=== PATIENT | male | born 1955 | race Hispanic/Latino ===

== ENCOUNTER 2020-06-06 14:57 | Emergency (ER) | payer OTHER ==
[2020-06-06 15:29] VITALS: BP 180/96
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
--- NOTE | 2020-06-06 16:00 | Cat Scan Report ---
CT BRAIN: 06/06/2020 INDICATION / CLINICAL INFORMATION: Trauma. Dizziness.. COMPARISON: None available. FINDINGS: BRAIN/INTRACRANIAL STRUCTURES: Unenhanced CT images of the brain demonstrate no evidence of acute int racranial abnormality. Ventricles and sulci are slightly prominent in size, consistent with age-related atrophic change. There is no evidence of acute ischemic injury, hemorrhage, or mass. There are no abnormal extra-axial fluid collections. EXTRACRANIAL STRUCTURES: Unremarkable. IMPRESSION: No acute abnormality. All CT scans at this location are performed using dose reduction to ALARA by means of automated expos ure control. Signer Name: Randell Levi MD Signed: 06/06/2020 3:56 PM Workstation Name: [id number]
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
== END 2020-06-06 18:15 | disposition home or self-care (01) ==
LOC: ED 14:57
DX: S13.4XXA Sprain of ligaments of cervical spine, initial encounter (principal); S00.03XA Contusion of scalp, initial encounter; I10 Essential (primary) hypertension; Z98.890 Other specified postprocedural states; Z79.899 Other long term (current) drug therapy; V49.49XA Driver injured in collision with other motor vehicles in traffic accident, initial encounter; Y92.410 Unspecified street and highway as the place of occurrence of the external cause; Y93.89 Activity, other specified; Y99.8 Other external cause status
CPT/HCPCS: 70450; 72125

== ENCOUNTER 2021-10-21 17:25 | Emergency (ER) | payer MEDICARE ==
[2021-10-21] MEDS ORDERED: cloNIDine 0.2 MG TAB PO ONE (18:54)
[2021-10-21 19:06] VITALS: BP 180/101
--- NOTE | 2021-10-21 19:08 | Event Note ---
ED Screening Note ED Screening Note: Patient is a 66-year-old male presents emergency room complaints of right-sided flank pain and right lower back pain that began 3 days ago He states it feels like intermittent sharp stabbing pain He states it will last for a few hours and resolve He states 4 years ago his doctor advised him that he had a kidney stone present in the kidney States he is also had back surgery in the past He denies any fever, vomiting, diarrhea, urinary symptoms Patient states he has an allergy to lisinopril he has past medical history of hypertension and states that he did not take his blood pressure medication today This initial assessment/diagnostic orders/clinical plan/treatment(s) is/are subject to change based on patients health status, clinical progression and re- assessment by fellow clinical providers in the ED. Further treatment and workup at subsequent clinical providers discretion. Patient/guardian urged not to elope from the ED as their condition may be serious if not clinically assessed and managed. Initial orders include: Labs, urine, med
--- NOTE | 2021-10-21 19:43 | Cat Scan Report ---
CT ABDOMEN AND PELVIS WITHOUT CONTRAST INDICATION: right flank, right lower back pain CONTRAST: Without IV COMPARISON: None available. All CT scans at this location are performed using CT dose reduction for ALARA by means of automated e xposure control. FINDINGS: Lung bases are clear. No pneumoperitoneum is seen. Small hepatic cysts are noted. Liver jagdeep ws mild fatty infiltration and is mildly enlarged. Hepatic length measures 18.4 cm. Spleen appears wi thin normal limits. I see no abnormalities of the adrenals, pancreas, gallbladder, or bile ducts. No lymphadenopathy is seen. No evidence of bowel obstruction is noted. No inflammatory changes are seen. No free fluid is noted. No pelvic masses are seen. Minimal umbilical fatty hernia is noted without a cute change. Mild bilateral nephrolithiasis is seen. No obstructive changes are seen on the left. On the right the re is mild prominence of the collecting system and most of the right ureter. Edema is seen in surroun ding the right kidney and upper ureter. Right kidney also shows 2 water density probable cyst. The ri ght ureter has a 5 mm calculus in the distal portion just above the ureterovesical junction. Left ure ter shows no calculi. Urinary bladder is not well distended but shows no abnormalities. Prostate is m ildly enlarged. Seminal vesicles appear within normal limits. IMPRESSION: 1. Mildly obstructing distal right ureteral calculus 2. Mild bilateral nephrolithiasis Signer Name: Alex Rios MD Signed: 10/21/2021 7:39 PM Workstation Name: [id number]
[2021-10-21 19:44] LABS: Bacteria,Urine 1+ /HPF (Negative); Bilirubin,Urine NEG (Negative); Blood,Urine MOD (Negative); Color,Urine Yellow (Yellow); Mucus,Urine FEW /HPF; Protein,Urine <15 mg/dL mg/dL (Negative); Urobilinogen,Urine < 2.0 mg/dL (<2.0)
--- NOTE | 2021-10-21 19:51 | Emergency Department Report ---
ED General Adult HPI - General Chief complaint: Abdominal Pain Stated complaint: KIDNEY STONES PUI?: No Time Seen by Provider: 10/21/21 19:22 Source: patient, RN notes reviewed Mode of arrival: Ambulatory Limitations: No Limitations - History of Present Illness Initial comments: The patient was evaluated in the emergency department for symptoms described in the history of present illness. He/she was evaluated in the context of the global COVID-19 pandemic, which necessitated consideration that the patient might be at risk for infection with the virus that causes COVID-19. Institutional protocols and algorithms that pertain to the evaluation of patients at risk for COVID-19 are in a state of rapid change based on inform ation released by regulatory bodies including the CDC and federal and state organizations. These policies and algorithms were followed during the patient's care in the emergency department. Please note that these policies, procedures and recommendations changed on a rapid basis. The patient is a pleasant 66-year-old gentleman with a history of hypertension and renal colic, who presents to the ER with a complaint of "I think I have a kidney stone." The patient reports an odd sensation of discomfort from his right paralumbar region that radiates around to his right lower quadrant. However, he reports that he is not in physical pain. He denies testicular pain, and dysuria. He denies nausea, vomiting and diarrhea. He reports that he feels like he is at his baseline. Of note, he has a history of hypertension, and did not take his blood pressure medication today. He reports that he feels "fine", and states that he has no physical pain at this time. He declines analgesia at this time. He denies extremity weakness and numbness, as well as bladder/bowel retention and incontinence as well as saddle anesthesia -: Gradual Location: back Radiation: abdomen Severity scale (0 -10): 9 Improves with: none Worsens with: none Associated Symptoms: denies other symptoms - Related Data Previous Rx's Medication Instructions Recorded Last Taken Type Acetaminophen [Non-Aspirin Extra 500 mg PO Q6HR PRN #30 tablet 10/21/21 Unknown Rx Strength] Ibuprofen [Motrin] 600 mg PO Q8H PRN #30 tablet 10/21/21 Unknown Rx Ondansetron [Zofran Odt] 4 mg PO Q8HR PRN #20 tab.rapdis 10/21/21 Unknown Rx Tamsulosin [Flomax] 0.4 mg PO QHS #30 cap 10/21/21 Unknown Rx Allergies Allergy/AdvReac Type Severity Reaction Status Date / Time No Known Allergies Allergy Unverified 06/06/20 15:26 ED Review of Systems ROS: Stated complaint: KIDNEY STONES Other details as noted in HPI Constitutional: denies: fever Eyes: denies: eye discharge ENT: denies: epistaxis Respiratory: denies: cough Cardiovascular: denies: chest pain Gastrointestinal: as per HPI. denies: nausea, vomiting, diarrhea Musculoskeletal: as per HPI Neurological: denies: weakness ED Past Medical Hx - Past Medical History Previous Medical History?: Yes Hx Hypertension: Yes Hx Diabetes: Yes Hx Kidney Stones: Yes - Surgical History Past Surgical History?: Yes Additional Surgical History: back surgery - Medications Home Medications: Home Medications Medication Instructions Recorded Confirmed Last Taken Type Acetaminophen [Non-Aspirin Extra 500 mg PO Q6HR PRN #30 tablet 10/21/21 Unknown Rx Strength] Ibuprofen [Motrin] 600 mg PO Q8H PRN #30 tablet 10/21/21 Unknown Rx Ondansetron [Zofran Odt] 4 mg PO Q8HR PRN #20 tab.rapdis 10/21/21 Unknown Rx Tamsulosin [Flomax] 0.4 mg PO QHS #30 cap 10/21/21 Unknown Rx ED Physical Exam - General Limitations: No Limitations General appearance: alert, in no apparent distress - Head Head exam: Present: atraumatic, normocephalic - Eye Eye exam: Present: normal appearance, EOMI. Absent: nystagmus - ENT ENT exam: Present: normal exam, normal orophraynx, mucous membranes moist, normal external ear exam - Neck Neck exam: Present: normal inspection, full ROM. Absent: tenderness, meningismus - Respiratory Respiratory exam: Present: normal lung sounds bilaterally. Absent: respiratory distress, wheezes, rales, rhonchi, stridor, decreased breath sounds - Cardiovascular Cardiovascular Exam: Present: regular rate, normal rhythm, normal heart sounds. Absent: bradycardia, tachycardia, irregular rhythm, systolic murmur, diastolic murmur, rubs, gallop - GI/Abdominal GI/Abdominal exam: Present: soft. Absent: distended, tenderness, guarding, jaron ound, rigid, pulsatile mass - Rectal Rectal exam: Present: deferred - Extremities Exam Extremities exam: Present: normal inspection, full ROM, other (2+ pulses noted in the bilateral upper and lower extremities. There is no palpable cord. negative Homans sign. Muscular compartments are soft. The pelvis is stable.). Absent: pedal edema, calf tenderness - Back Exam Back exam: Present: normal inspection. Absent: tenderness, CVA tenderness (R), CVA tenderness (L), paraspinal tenderness, vertebral tenderness - Neurological Exam Neurological exam: Present: alert, oriented X3, normal gait, other (No facial droop. Tongue midline. Extraocular movements intact bilaterally. Facial sensation intact to light touch in V1, V2, V3 distribution bilaterally. 5 and a 5 strength in 4 extremities. Sensation intact to light touch in 4 extremi ties.). Absent: motor sensory deficit - Psychiatric Psychiatric exam: Present: normal affect, normal mood - Skin Skin exam: Present: warm, dry, intact, normal color. Absent: rash ED Course Vital Signs 10/21/21 10/21/21 10/21/21 17:52 19:05 21:03 Temperature 98.3 F Pulse Rate 84 81 Respiratory 20 17 Rate Blood Pressure 180/101 Blood Pressure 214/110 [Right] O2 Sat by Pulse 98 100 Oximetry ED Medical Decision Making - Lab Data Vital Signs 10/21/21 10/21/21 17:52 19:05 Temperature 98.3 F Pulse Rate 84 Respiratory 20 Rate Blood Pressure 180/101 Blood Pressure 214/110 [Right] O2 Sat by Pulse 98 Oximetry Lab Results 10/21/21 Range/Units Unknown Urine Color Yellow (Yellow) Urine Turbidity Clear (Clear) Urine pH 6.0 (5.0-7.0) Ur Specific [place] 1.016 (1.003-1.030) Urine Protein <15 mg/dl (Negative) mg/dL Urine Glucose (UA) 50 (Negative) mg/dL Urine Ketones Neg (Negative) mg/dL Urine Blood Mod (Negative) Urine Nitrite Neg (Negative) Urine Bilirubin Neg (Negative) Urine Urobilinogen < 2.0 (<2.0) mg/dL Ur Leukocyte Esterase Neg (Negative) Urine WBC (Auto) 2.0 (0.0-6.0) /HPF Urine RBC (Auto) 9.0 (0.0-6.0) /HPF Urine Bacteria (Auto) 1+ (Negative) /HPF Urine Mucus Few /HPF - Radiology Data Radiology results: report reviewed, image reviewed CT ABDOMEN AND PELVIS WITHOUT CONTRAST INDICATION: right flank, right lower back pain CONTRAST: Without IV COMPARISON: None available. All CT scans at this location are performed using CT dose reduction for ALARA by means of automated exposure control. FINDINGS: Lung bases are clear. No pneumoperitoneum is seen. Small hepatic cysts are noted. Liver shows mild fatty infiltration and is mildly enlarged. Hepatic length measures 18.4 cm. Spleen appears within normal limits. I see no abnormalities of the adrenals, pancreas, gallbladder, or bile ducts. No lymphadenopathy is seen. No evidence of bowel obstruction is noted. No inflammatory changes are seen. No free fluid is noted. No pelvic masses are seen. Minimal umbilical fatty hernia is noted without acute change. Mild bilateral nephrolithiasis is seen. No obstructive changes are seen on the left. On the right there is mild prominence of the collecting system and most of the right ureter. Edema is seen in surrounding the right kidney and upper ureter. Right kidney also shows 2 water density probable cyst. The right ureter has a 5 mm calculus in the distal portion just above the ureterovesical junction. Left ureter shows no calculi. Urinary bladder is not well distended but shows no abnormalities. Prostate is mildly enlarged. Seminal vesicles appear within normal limits. IMPRESSION: 1. Mildly obstructing distal right ureteral calculus 2. Mild bilateral nephrolithiasis Signer Name: Alex Rios MD Signed: 10/21/2021 6:39 PM Workstation Name: [id number] - Medical Decision Making Differential diagnosis, including not limited to: Renal colic, chronic hypertension Assessment and plan: 66-year-old gentleman, who was afebrile, with reassuring vital signs with exception of chronic hypertension/elevated blood pressure, which is not acutely symptomatic or decompensated, please reference the [employer] clinical policy on asymptomatic hypertension, who presents to the ER today with a complaint of resolved flank pain, reminiscent of prior episodes of renal colic. He has no abdominal tenderness, rebound or guarding, he is sitting in his chair quite comfortably, and is very pleasant and engaging. He is also looking at a cellular phone, and he is not in any acute distress. He endorses that he does not need anything for pain at this time. He denies testicular pain, and his urinalysis is not consistent with urinary tract infection. A CT scan of the abdomen pelvis was ordered prior to my personal evaluation of this patient, and confirms the presence of right-sided kidney stone. Patient will be discharged with Flomax/medical expulsive therapy, as needed pain medication, he will need to follow-up with an outpatient urologist. He can follow-up with a primary care doctor for his chronic hypertension. Patient observed in this ER for hours without clinical decompensation, and is reliable to follow-up as an outpatient Critical care attestation.: If time is entered above; I have spent that time in minutes in the direct care of this critically ill patient, excluding procedure time. ED Disposition Clinical Impression: Ureteral calculus, right, Nephrolithiasis Disposition: HOME / SELF CARE / HOMELESS Is pt being admited?: No Does the pt Need Aspirin: No Condition: Good Instructions: Kidney Stones, Hypertension, Adult Additional Instructions: Patient is found to have a right-sided ureteral kidney stone. Patient is also found to have kidney stones on right and left side Recommend that patient drink 6 cups of water per day, and avoid consumption of processed foods, sugar, simple carbohydrates. Recommend that patient consume fiber, vegetables and lean protein. Patient may take the pain medication/nausea medication and Flomax medication as needed and directed. Recommend follow-up with a urologist such as Dr. Owens, or [facility], within the next 5 to 7 days. [facility] may be also contacted at the following phone number [phone] ([phone]) 15/04 appointment scheduling is available to anyone experiencing symptoms of a kidney stone. The patient is also found to have high blood pressure while here in the emergency room. He should follow-up with his primary care doctor for this within the next month. Long-term complications of high blood pressure and hypertension include stroke, heart attack, disability, paralysis, and loss of quality of life. Please return to the emergency room right away with new pain, worsened pain, migration of pain, projectile vomiting, change in mental status, confusion, inability tolerate liquid feeds, new, worsened or different symptoms not present on the initial emergency room evaluation Prescriptions: Tamsulosin [Flomax] 0.4 mg PO QHS #30 cap Ibuprofen [Motrin] 600 mg PO Q8H PRN #30 tablet PRN Reason: Pain Acetaminophen [Non-Aspirin Extra Strength] 500 mg PO Q6HR PRN #30 tablet PRN Reason: Pain , Severe (7-10) Ondansetron [Zofran Odt] 4 mg PO Q8HR PRN #20 tab.rapdis PRN Reason: Nausea Referrals: MALORIE OWENS MD [Staff Physician] - 3-5 Days LISANDRO SUTTON MD [Staff Physician] - 3-5 Days
== END 2021-10-21 20:57 | disposition home or self-care (01) ==
LOC: ED 17:25
DX: N20.2 Calculus of kidney with calculus of ureter (principal); N21.1 Calculus in urethra; N20.0 Calculus of kidney; I10 Essential (primary) hypertension; E11.9 Type 2 diabetes mellitus without complications; Z79.899 Other long term (current) drug therapy; Z98.890 Other specified postprocedural states
CPT/HCPCS: 74176; 81001; 99284